=== PATIENT | male | born 1995 | race Caucasian/White ===

== ENCOUNTER 2021-04-09 09:45 | Inpatient (IN) | payer BC ==
[2021-04-09 11:02] LABS: #Lymphocytes 1.3 thou/uL (1.20-3.40); #Monocytes 0.3 thou/uL (0.11-0.59); #Neutrophils 4.6 thou/uL (1.40-6.50); %Basophils 0.5 % (0.0-1.0); %Eosinophils 0.1 % (0.0-10.0); %Lymphocytes 20.7 % (21.0-51.0); %Monocytes 4.3 % (0.0-10.0); %Neutrophils 74.4 % (42.0-75.0); Hemoglobin 13.6 g/dL (14.0-18.0); Mean Corpuscular HGB CONC 33.4 g/dL (32.0-36.0); Mean Corpuscular Hemoglobin 27.3 pg (27.0-31.0); Mean Corpuscular Volume 81.9 fL (78.0-98.0); Platelet Count 227 thou/uL (130-400); RBC Distribution Width 13.1 % (11.5-14.5); Red Blood Cell (RBC) Count 4.99 mill/uL (4.70-6.10); White Blood Cell (WBC) Count 6.1 thou/uL (4.8-10.8)
[2021-04-09] MEDS ORDERED: ISOVUE-370 76%-LOCM 1 ML ONE (11:17)
[2021-04-09 11:22] LABS: ALT (SGPT) 54 U/L (8-55); AST (SGOT) 49 U/L (5-34); Albumin 4.2 g/dL (3.5-5.0); Alkaline Phosphatase 75 U/L (40-110); Anion Gap 11 mmol/L (10-20); BUN (Urea Nitrogen) 10 mg/dL (8.9-20.6); Bilirubin, Total 0.5 mg/dL (0.2-1.2); Calc. Creatinine Clearance 0 mL/min (70-130); Calcium 8.9 mg/dL (7.8-10.44); Carbon Dioxide 24 mmol/L (22-29); Chloride 101 mmol/L (98-107); Globulin 3.7 g/dL (2.4-3.5); Glucose 169 mg/dL (70-105); Potassium 3.8 mmol/L (3.5-5.1); Protein, Total 7.9 g/dL (6.0-8.3); Sodium 132 mmol/L (136-145)
[2021-04-09] MEDS ORDERED: Dexamethasone 4 mg/ml Vial ONE (12:32)
[2021-04-09] MEDS ORDERED: Ketorolac Tromethamine 30 MG/ML VIAL ONE (12:32)
[2021-04-09 17:21] VITALS: BMI 51.1
[2021-04-09] MEDS: Sodium Chloride 0.9% 1,000 ML IV SCH (17:30)
[2021-04-09 18:06] LABS: SARS-CoV-2 NAA Rapid Test DETECTED (NotDetected)
[2021-04-09] MEDS: Enoxaparin Sodium 40 MG/0.4 ML SYRINGE SC SCH (20:23)
[2021-04-09] MEDS: Colchicine 0.6 MG TAB PO SCH (20:23)
[2021-04-10] MEDS: Acetaminophen 325 MG TAB PO PRN ×3 (00:14→22:31)
[2021-04-10] MEDS: Sodium Chloride 0.9% 1,000 ML IV SCH (05:13)
[2021-04-10 07:12] LABS: #Lymphocytes 1.1 thou/uL (1.20-3.40); #Monocytes 0.3 thou/uL (0.11-0.59); #Neutrophils 3.4 thou/uL (1.40-6.50); %Basophils 0.8 % (0.0-1.0); %Eosinophils 0.1 % (0.0-10.0); %Lymphocytes 22.4 % (21.0-51.0); %Monocytes 5.7 % (0.0-10.0); Hemoglobin 12.9 g/dL (14.0-18.0); Mean Corpuscular HGB CONC 31.2 g/dL (32.0-36.0); Mean Corpuscular Hemoglobin 25.7 pg (27.0-31.0); Mean Corpuscular Volume 82.3 fL (78.0-98.0); Mean Platelet Volume 7.7 fL (7.4-10.4); Platelet Count 219 thou/uL (130-400); Red Blood Cell (RBC) Count 5.02 mill/uL (4.70-6.10); White Blood Cell (WBC) Count 4.8 thou/uL (4.8-10.8)
[2021-04-10 07:27] LABS: ALT (SGPT) 69 U/L (8-55); AST (SGOT) 62 U/L (5-34); Alkaline Phosphatase 68 U/L (40-110); Anion Gap 13 mmol/L (10-20); BUN (Urea Nitrogen) 12 mg/dL (8.9-20.6); Bilirubin, Total 0.4 mg/dL (0.2-1.2); Calc. Creatinine Clearance 404 mL/min (70-130); Calcium 8.5 mg/dL (7.8-10.44); Carbon Dioxide 24 mmol/L (22-29); Chloride 104 mmol/L (98-107); Globulin 3.4 g/dL (2.4-3.5); Glucose 138 mg/dL (70-105); Protein, Total 7.4 g/dL (6.0-8.3); Sodium 137 mmol/L (136-145)
[2021-04-10 07:29] LABS: Hemoglobin A1c 6.9 % (4.0-6.0)
[2021-04-10] MEDS: Guaifenesin DM 100-10/5 ML UDCUP PO PRN ×2 (07:38→20:41)
[2021-04-10] MEDS: Zinc Sulfate 220 MG CAP PO SCH (07:39)
[2021-04-10] MEDS: Colchicine 0.6 MG TAB PO SCH ×2 (07:39→20:41)
[2021-04-10] MEDS: Dexamethasone 4 mg/ml Vial SLOW IVP SCH (07:39)
[2021-04-10] MEDS: Enoxaparin Sodium 40 MG/0.4 ML SYRINGE SC SCH ×2 (07:39→20:41)
[2021-04-10] MEDS: Cholecalciferol (Vitamin D3) 400 UNITS TAB PO SCH (07:39)
[2021-04-10] MEDS ORDERED: Dexamethasone 6 MG in Sodium Chloride 0.9% 50 ML IVPB SCH (09:00)
[2021-04-10] MEDS ORDERED: REMDESIVIR 200 MG in Sodium Chloride 0.9% 250 ML 210 ML IV SCH (10:00)
[2021-04-10] MEDS ORDERED: Dextrose 50% Abboject 50 ML SYRINGE SLOW IVP PRN (10:02)
[2021-04-10] MEDS ORDERED: HumaLOG 300 UNITS/3 ML VIAL SC PRN (10:02)
[2021-04-10] MEDS ORDERED: Dextrose 5% in Water 1,000 ML IV PRN (10:02)
[2021-04-10] MEDS: Lantus 1000 UNITS/10 ML VIAL SC SCH (20:42)
[2021-04-11 07:50] LABS: #Monocytes 0.4 thou/uL (0.11-0.59); #Neutrophils 3.6 thou/uL (1.40-6.50); %Basophils 0.5 % (0.0-1.0); %Eosinophils 0.3 % (0.0-10.0); %Lymphocytes 32.6 % (21.0-51.0); %Monocytes 6.3 % (0.0-10.0); %Neutrophils 60.2 % (42.0-75.0); Hemoglobin 12.7 g/dL (14.0-18.0); Mean Corpuscular HGB CONC 32.7 g/dL (32.0-36.0); Mean Corpuscular Hemoglobin 26.9 pg (27.0-31.0); Mean Corpuscular Volume 82.3 fL (78.0-98.0); Mean Platelet Volume 7.4 fL (7.4-10.4); Platelet Count 239 thou/uL (130-400); RBC Distribution Width 13.2 % (11.5-14.5); Red Blood Cell (RBC) Count 4.71 mill/uL (4.70-6.10)
[2021-04-11 07:52] LABS: Anion Gap 12 mmol/L (10-20); BUN (Urea Nitrogen) 12 mg/dL (8.9-20.6); CRP (Inflammatory) 2.04 mg/dL (= or < 0.5); Calc. Creatinine Clearance 399 mL/min (70-130); Calcium 8.4 mg/dL (7.8-10.44); Carbon Dioxide 25 mmol/L (22-29); Chloride 104 mmol/L (98-107); Glucose 110 mg/dL (70-105); Potassium 3.9 mmol/L (3.5-5.1); Sodium 137 mmol/L (136-145)
[2021-04-11 07:54] LABS: ALT (SGPT) 81 U/L (8-55); AST (SGOT) 60 U/L (5-34); Albumin 3.9 g/dL (3.5-5.0); Alkaline Phosphatase 62 U/L (40-110); Bilirubin, Direct 0.2 mg/dL (0.1-0.3); Bilirubin, Total 0.4 mg/dL (0.2-1.2); Protein, Total 7.1 g/dL (6.0-8.3)
[2021-04-11] MEDS ORDERED: FLU VACC QS2021-22(6MOS UP)/PF 60 MCG/0.5 ML SYRINGE IM ONE (09:00)
[2021-04-11] MEDS: REMDESIVIR 100 MG in Sodium Chloride 0.9% 250 ML 230 ML IV SCH (09:17)
[2021-04-11] MEDS: Colchicine 0.6 MG TAB PO SCH ×2 (09:18→21:39)
[2021-04-11] MEDS: Enoxaparin Sodium 40 MG/0.4 ML SYRINGE SC SCH ×2 (09:18→21:39)
[2021-04-11] MEDS: Guaifenesin DM 100-10/5 ML UDCUP PO PRN (09:18)
[2021-04-11] MEDS: Zinc Sulfate 220 MG CAP PO SCH (09:18)
[2021-04-11] MEDS: Dexamethasone 4 mg/ml Vial SLOW IVP SCH (09:18)
[2021-04-11] MEDS: Acetaminophen 325 MG TAB PO PRN (09:18)
[2021-04-11] MEDS: Cholecalciferol (Vitamin D3) 400 UNITS TAB PO SCH (09:18)
[2021-04-11] MEDS: hydrOXYzine 25 MG TAB PO PRN (21:39)
[2021-04-11] MEDS: Lantus 1000 UNITS/10 ML VIAL SC SCH (21:52)
[2021-04-12 07:36] LABS: ALT (SGPT) 155 U/L (8-55); AST (SGOT) 127 U/L (5-34); Albumin 3.9 g/dL (3.5-5.0); Alkaline Phosphatase 66 U/L (40-110); Bilirubin, Direct 0.3 mg/dL (0.1-0.3); Bilirubin, Total 0.4 mg/dL (0.2-1.2); Protein, Total 7.3 g/dL (6.0-8.3)
[2021-04-12] MEDS: Dexamethasone 4 mg/ml Vial SLOW IVP SCH ×2 (08:10→22:38)
[2021-04-12] MEDS: Enoxaparin Sodium 40 MG/0.4 ML SYRINGE SC SCH ×2 (08:11→22:38)
[2021-04-12] MEDS: Cholecalciferol (Vitamin D3) 400 UNITS TAB PO SCH (08:11)
[2021-04-12] MEDS: Zinc Sulfate 220 MG CAP PO SCH (08:11)
[2021-04-12] MEDS: Colchicine 0.6 MG TAB PO SCH ×2 (08:11→22:38)
[2021-04-12] MEDS: REMDESIVIR 100 MG in Sodium Chloride 0.9% 250 ML 230 ML IV SCH (09:57)
[2021-04-12] MEDS: hydrOXYzine 25 MG TAB PO PRN (10:09)
[2021-04-12] MEDS ORDERED: Loratadine 10 MG TAB PO SCH (17:30)
[2021-04-12] MEDS: Lantus 1000 UNITS/10 ML VIAL SC SCH (22:38)
[2021-04-12] MEDS: Mometasone 200 MCG/Formoterol 5 MCG 120 PUFF INHALER INH SCH (23:43)
[2021-04-13 07:13] LABS: ALT (SGPT) 202 U/L (8-55); AST (SGOT) 96 U/L (5-34); Alkaline Phosphatase 70 U/L (40-110); Bilirubin, Direct 0.3 mg/dL (0.1-0.3); Bilirubin, Total 0.5 mg/dL (0.2-1.2); Protein, Total 7.6 g/dL (6.0-8.3)
[2021-04-13] MEDS: Dexamethasone 4 mg/ml Vial SLOW IVP SCH (09:33)
[2021-04-13] MEDS: Colchicine 0.6 MG TAB PO SCH ×2 (09:34→20:53)
[2021-04-13] MEDS: Cholecalciferol (Vitamin D3) 400 UNITS TAB PO SCH (09:34)
[2021-04-13] MEDS: Zinc Sulfate 220 MG CAP PO SCH (09:34)
[2021-04-13] MEDS: Enoxaparin Sodium 40 MG/0.4 ML SYRINGE SC SCH ×2 (09:35→20:53)
[2021-04-13] MEDS: Loratadine 10 MG TAB PO SCH (09:35)
[2021-04-13] MEDS: REMDESIVIR 100 MG in Sodium Chloride 0.9% 250 ML 230 ML IV SCH (09:36)
[2021-04-13] MEDS: Mometasone 200 MCG/Formoterol 5 MCG 120 PUFF INHALER INH SCH ×2 (20:00→20:52)
[2021-04-13] MEDS: predniSONE 20 MG TAB PO SCH (20:53)
[2021-04-13] MEDS: Lantus 1000 UNITS/10 ML VIAL SC SCH (20:54)
[2021-04-14] MEDS: Mometasone 200 MCG/Formoterol 5 MCG 120 PUFF INHALER INH SCH (05:33)
[2021-04-14 06:35] LABS: ALT (SGPT) 203 U/L (8-55); AST (SGOT) 90 U/L (5-34); Albumin 3.8 g/dL (3.5-5.0); Alkaline Phosphatase 66 U/L (40-110); Bilirubin, Direct 0.2 mg/dL (0.1-0.3); Bilirubin, Total 0.4 mg/dL (0.2-1.2); CRP (Inflammatory) 0.61 mg/dL (= or < 0.5); Protein, Total 7.2 g/dL (6.0-8.3)
[2021-04-14] MEDS: Loratadine 10 MG TAB PO SCH (08:14)
[2021-04-14] MEDS: Colchicine 0.6 MG TAB PO SCH (08:14)
[2021-04-14] MEDS: Cholecalciferol (Vitamin D3) 400 UNITS TAB PO SCH (08:14)
[2021-04-14] MEDS: Enoxaparin Sodium 40 MG/0.4 ML SYRINGE SC SCH (08:14)
[2021-04-14] MEDS: predniSONE 20 MG TAB PO SCH (08:14)
[2021-04-14] MEDS: Zinc Sulfate 220 MG CAP PO SCH (08:14)
[2021-04-14] MEDS: REMDESIVIR 100 MG in Sodium Chloride 0.9% 250 ML 230 ML IV SCH (08:14)
[2021-04-14 08:25] VITALS: BP 115/73; TEMP 97.8
== END 2021-04-14 13:10 | disposition home or self-care (01) | DRG 177 ==
LOC: ERS 09:45 → ERHOLD 14:58 → T4-A 17:08
PROVIDERS: ADMIT Internal Medicine; ATTEND Internal Medicine
PROC: 8E0ZXY6 Isolation (ICD-10-PCS; 2021-04-09)
PROC: 3E0333Z Introduction of Anti-inflammatory into Peripheral Vein, Percutaneous Approach (ICD-10-PCS; principal; 2021-04-10)
PROC: XW033E5 Introduction of Remdesivir Anti-infective into Peripheral Vein, Percutaneous Approach, New Technology Group 5 (ICD-10-PCS; 2021-04-10)
DX: U07.1 COVID-19 (principal); J12.82 Pneumonia due to coronavirus disease 2019; J96.01 Acute respiratory failure with hypoxia; Z68.43 Body mass index [BMI] 50.0-59.9, adult; E87.1 Hypo-osmolality and hyponatremia; E66.01 Morbid (severe) obesity due to excess calories; R19.7 Diarrhea, unspecified; E11.65 Type 2 diabetes mellitus with hyperglycemia
CPT/HCPCS: 36415; 36416; 71045; 71275; 80048; 80053; 80076; 82728; 83036; 83605; 83615; 84484; 85025; 85379; 86140; 93005; 94760; 96374; 96375; J1100; J1650; J1815; J1885; J7050; J7512; Q9966; U0002